=== PATIENT | male | born 2000 | race Two or more races ===

== ENCOUNTER 2021-11-13 09:31 | Emergency (ER) | payer MEDICAID, OTHER ==
[2021-11-13 09:34] VITALS: BP 115/75
== END 2021-11-13 10:25 | disposition left against medical advice (07) ==
LOC: ER 09:31
DX: M25.562 Pain in left knee (principal); Z53.21 Procedure and treatment not carried out due to patient leaving prior to being seen by health care provider; W21.02XA Struck by soccer ball, initial encounter; Y93.89 Activity, other specified; Y92.89 Other specified places as the place of occurrence of the external cause; Y99.8 Other external cause status